=== PATIENT | male | born 2005 | race Two or more races ===

== ENCOUNTER 2024-02-09 20:06 | Emergency (ER) | payer OTHER ==
[~2024-02-09] VITALS: Ht 172.7 cm; Wt 81.6 kg
[2024-02-09] MEDS ORDERED: ONDANSETRON HCL 2 MG/ML VIAL IV SCH (21:15)
[2024-02-09] MEDS ORDERED: 0.9 % SODIUM CHLORIDE 1,000 ML IV SCH (21:15)
[2024-02-09] MEDS ORDERED: DEXTROSE 5 % AND 0.9 % NACL 1,000 ML IV SCH (21:15)
[2024-02-09] MEDS ORDERED: FAMOTIDINE/PF 20 MG/2 ML VIAL IV SCH (21:15)
[2024-02-09 21:44] LABS: HEMATOCRIT 43.3 % (39.0-48.0); HEMOGLOBIN 14.9 g/dL (13-16.00); MEAN CORPUSCULAR HEMOGLOBIN 30.3 pg (27.00-32.0); MEAN CORPUSCULAR HGB CONC 34.4 g/dl (32.0-36.0); PLATELET COUNT 218 K/uL (150-450); RED BLOOD COUNT 4.92 M/uL (4.00-6.00); RED CELL DISTRIBUTION WIDTH 13.8 % (11.5-14.5)
[2024-02-09 22:01] LABS: URINE APPEARANCE Clear; URINE BILIRRUBIN Negative (NEGATIVE); URINE BLOOD Negative; URINE COLOR Dark Yellow; URINE GLUCOSE Negative (NEGATIVE); URINE LEUKOCYTE Negative; URINE NITRATE Negative; URINE PROTEIN Trace (NEGATIVE); URINE UROBILINOGEN 0.2 E.U./dl
[2024-02-09 22:05] LABS: URINE BACTERIA 26.4 uL (0.0-1933); URINE EPITHELIAL CELLS 7.7 uL (0.0-38.8); URINE WBC 12.7 uL (0.0-23.2)
[2024-02-09 22:06] LABS: URINE RBC 1.4 uL (0.0-20.8)
[2024-02-09 22:07] LABS: ALBUMIN 3.6 gm/dL (3.4-5.0); BILIRUBIN TOTAL 0.64 mg/dL (0.3-1.2); CALCIUM 9.3 mg/dL (8.5-10.1); CREATININE SERUM 1.14 mg/dL (0.70-1.30); GFR 82.75; GLOBULINA 4.7 G/DL (2.4-3.5); POTASSIUM 4.04 mEq/L (3.5-5.1); TOTAL PROTEIN 8.3 gm/dL (6.4-8.2)
[2024-02-09] MEDS ORDERED: ACETAMINOPHEN 500 MG GEL..CAP PO ONE (22:15)
[2024-02-10] MEDS ORDERED: CEFAZOLIN SODIUM 1,000 MG VIAL IM STA (00:44)
== END 2024-02-10 00:59 | disposition home or self-care (01) ==
LOC: EMR PED 20:07 → ER 20:07 → EMR PED 20:32
PROVIDERS: Emergency Medicine Pediatric Emergency Medicine
DX: R10.9 Unspecified abdominal pain (principal); R19.7 Diarrhea, unspecified